=== PATIENT | female | born 2000 | race Caucasian/White ===

== ENCOUNTER 2022-11-17 10:05 | Emergency (ER) | payer MEDICAID, SELFPAY ==
[2022-11-17 10:12] VITALS: BP 116/69; PULSE 88; RESP 14; TEMP 37.2; O2SAT 100
--- NOTE | 2022-11-17 10:29 | DI.US_ITS ---
Exam(s) US PELVIS TRANSVAGINAL EXAM: US PELVIS TRANSVAGINAL CLINICAL HISTORY: pain left lower quadrant TECHNIQUE: Transabdominal and transvaginal imaging was performed using standard protocol. COMPARISON: No exams were available for comparison FINDINGS: UTERUS: Anteverted. 7.6 x 3.5 x 4.5 cm Endometrium: 2 mm. IUD is present foot is positioned abnormally low in the cervix and lower uterine segment. Myometrium: Unremarkable. Cervix: Unremarkable. OVARIES: Right: Cyst or mass: None. Left: Cyst or mass: None. DOPPLER: Color: Symmetric and uniform flow to both ovaries. No hyperemia. CUL-DE-SAC: Free fluid: None. IMPRESSION: 1. IUD position within the cervix and lower uterine segment. 2. Unremarkable bilateral ovaries. DATA REPOSITORY:
[2022-11-17 10:46] LABS: Abs Immature Grans 0.01 10^3/uL (0.0-0.06); Absolute Basophil Count 0.04 10^3/uL (0.0-0.2); Absolute Eosinophil Count 0.52 10^3/uL (0.0-0.7); Absolute Lymphocyte Count 1.85 10^3/uL (1.2-3.4); Absolute Monocyte Count 0.41 10^3/uL (0.1-0.8); Absolute Neutrophil Count 3.12 10^3/uL (1.2-6.7); Basophils % 0.7; Eosinophils % 8.7; HGB 12.8 g/dL (11.2-15.7); Immature Grans % 0.2; Lymphocytes % 31.1; MCH 29.7 pg (27.0-33.0); MCHC 32.8 % (32.0-36.0); MCV 91 fL (80-95); MPV 9.2 fL (8.0-11.0); Monocytes % 6.9; Neutrophils % 52.4; Platelet Count 222 10^3/uL (130-400); RBC 4.31 10^6/uL (3.93-5.22); RDW 12.3 % (11.7-14.6); RDW-SD 41.4 fL; WBC 5.95 10^3/uL (4.4-10.8)
[2022-11-17 10:49] LABS: Bilirubin Negative (Negative); Blood Trace-lysed (Negative); Clarity Clear (Clear); Glucose Negative (Negative); Ketones Negative (Negative); Leukocyte Esterase Moderate (Negative); Nitrite Negative (Negative); Urobilinogen 0.2 mg/dL (Up to 0.2)
[2022-11-17 11:04] LABS: ALT 20 U/L (14-59); AST 14 U/L (15-37); Albumin 3.8 g/dL (3.4-5.0); Alkaline Phosphatase 58 U/L (46-116); Anion Gap 7.4 mmol/L (3-11); BUN 10 mg/dL (7-18); Bilirubin, Total 0.3 mg/dL (0.2-1.0); CO2 26.6 mmol/L (21.0-32.0); CREATININE 0.8 mg/dL (0.55-1.02); Calcium 8.2 mg/dL (8.5-10.1); Chloride 108 mmol/L (98-107); Estimated GFR 108.78 (mL/min/1.73m2); Glucose 87 mg/dL (74-106); Lipase 43 U/L (16-77); Potassium 3.8 mmol/L (3.5-5.1); Sodium 142 mmol/L (136-145); Total Protein 7.4 g/dL (6.4-8.2)
[2022-11-17 11:13] LABS: Bacteria Rare HPF (Negative); C & S Indicated? No/Sq. Contamination; Crystals Negative HPF (Negative); Epithelial Cells Moderate HPF (Negative); Mucus Negative (Negative)
[2022-11-17] MEDS: Ketorolac 15 MG/ML VIAL IVP (11:25)
--- NOTE | 2022-11-17 11:52 | ED.GENADUL_ITS ---
Discharge Plan Disposition Patient Disposition: Home Discharge Details Clinical Impression: Bacterial vaginosis, Encounter for IUD removal Primary Care Provider: None,None ED Provider: Keyona Fraga Home Meds and New Rx's Prescriptions: New metronidazole 500 mg tablet 500 mg PO BID 7 Days Qty: 14 0RF ondansetron 4 mg tablet,disintegrating 4 mg PO Q8H Qty: 10 0RF Discharge Instructions Additional Instructions: Take the antibiotic as prescribed, do not take with alcohol Zofran as needed for nausea and vomiting Ibuprofen and Tylenol as needed for pain Please follow-up with your [facility], be aware that you will need to use alternate form of contraceptive as her IUD has been removed You may have some bleeding throughout the day today, it should only be light secondary to removal of the IUD Please follow-up with her PCP regarding her symptoms and return earlier should you have new or worsening complaints Discharge Data Discharge Date/Time-TO BE ENTERED AT DEPARTURE: 11/17/22 12:00 Medical Decision Making 21-year-old female presenting with abdominal discomfort Diagnostic labs are reassuring and do not show evidence of acute abnormality Malodorous white vaginal discharge noted, suspect bacterial vaginosis, will treat with metronidazole, alcohol precautions reviewed IUD removed by me after discussion with patient and her request, this was removed without incident aside from scant bleeding post removal She is encouraged to use alternate form of contraceptive and to follow-up with her [facility] [facility] Urinalysis has 10-20 white blood cells, this is contaminated specimen and nitrate negative, low suspicion for urinary tract infection clinically, no ind ication for antibiotics for cystitis at this time Will need close outpatient follow-up Appears well throughout this encounter Discharged home in stable condition with stable vitals Medical Records Medical records reviewed: Yes I reviewed the patient's medical records. Lab Data Lab results reviewed: Yes I reviewed the patient's lab results. HPI General Date/Time Provider Initiated Documentation: 11/17/22 10:21 . HPI Narrative: This 21-year-old female presents with 3 days of left side pain, vomited 3 times yesterday and had diarrhea and epigastric pain. She was seen at [facility] for similar symptoms yesterday. She was told that her IUD is in the appropriate position and is scheduled to have this removed, therefore she tells me she is concerned that she might have ectopic . She denies any dramatic change in her symptoms today. She denies any fever or chills today. Related Data Home Medications Medication Instructions Recorded Confirmed metronidazole 500 mg tablet 500 mg PO BID 7 days #14 tabs 11/17/22 ondansetron 4 mg disintegrating 4 mg PO Q8H #10 tabs 11/17/22 tablet Previous Rx's Medication Instructions Recorded metronidazole 500 mg tablet 500 mg PO BID 7 days #14 tabs 11/17/22 ondansetron 4 mg disintegrating 4 mg PO Q8H #10 tabs 11/17/22 tablet Allergies Allergy/AdvReac Type Severity Reaction Status Date / Time No Known Allergies Allergy Unverified 11/17/22 10:26 General Stated Complaint: Abd Prob SHAVONNE: 3 PFSH All Active Problems (Updated 11/17/22 @ 11:55 by RAMESH Gatica) Bacterial vaginosis (Acute) Encounter for IUD removal (Acute) Social History Smoking/Tobacco Use Status: Current every day Tobacco Type: e-cigarettes Smoking risk assessment performed?: Yes Alcohol Intake: never Substance use type: does not use Do you feel safe at home: Yes Do you feel safe in your relationship?: Yes Exam Const General: cooperative, comfortable and no acute distress Resp Effort & Inspection: normal respiratory effort Auscultation: clear to auscultation bilaterally Cardio Rate: regular rate Rhythm: regular rhythm GI Inspection: normal to inspection Auscultation: normal bowel sounds Other: No cervical motion tenderness, IUD string visualized, no adnexal tenderness, white cloudy discharge, malodorous Skin General skin exam: no rashes or lesions noted Neuro General: patient alert and patient oriented x3 Extrem General: normal to inspection Course Vital Signs Vital signs: Vital Signs Temperature 37.2 C 11/17/22 10:12 Pulse 88 11/17/22 10:12 Respiratory Rate 14 11/17/22 10:12 Blood Pressure 116/69 11/17/22 10:12 Pulse Oximetry 100 11/17/22 10:12 Temperature 37.2 C 11/17/22 10:12 Pulse 88 11/17/22 10:12 Respiratory Rate 14 11/17/22 10:12 Respiratory Effort Normal 11/17/22 10:25 Blood Pressure 116/69 11/17/22 10:12 Pulse Oximetry 100 11/17/22 10:12 Oxygen Delivery Method Room Air 11/17/22 10:12 Oxygen Flow Rate 0 11/17/22 10:12 Pain Level 5 11/17/22 11:25 Lab/Test Results Lab/Test Results: Laboratory Tests Range/Units 11/17/22 11/17/22 11/17/22 10:38 10:38 10:40 WBC (4.4-10.8) 10^3/uL 5.95 RBC (3.93-5.22) 10^6/uL 4.31 Hgb (11.2-15.7) g/dL 12.8 Hct (36.0-46.0) % 39.0 MCV (80-95) fL 91 MCH (27.0-33.0) pg 29.7 MCHC (32.0-36.0) % 32.8 RDW (11.7-14.6) % 12.3 Plt Count (130-400) 10^3/uL 222 MPV (8.0-11.0) fL 9.2 Immature Gran % 0.2 Neutrophils % 52.4 Lymphocytes % 31.1 Monocytes % 6.9 Eosinophils % 8.7 Basophils % 0.7 Nucleated RBC % (0.0-0.3) % 0.0 Absolute Neutrophils (1.2-6.7) 10^3/uL 3.12 Absolute Lymphocytes (1.2-3.4) 10^3/uL 1.85 Absolute Monocytes (0.1-0.8) 10^3/uL 0.41 Absolute Eosinophils (0.0-0.7) 10^3/uL 0.52 Absolute Basophils (0.0-0.2) 10^3/uL 0.04 Sodium (136-145) mmol/L 142 Potassium (3.5-5.1) mmol/L 3.8 Chloride (98-107) mmol/L 108 H Carbon Dioxide (21.0-32.0) mmol/L 26.6 Anion Gap (3-11) mmol/L 7.4 BUN (7-18) mg/dL 10 Creatinine (0.55-1.02) mg/dL 0.8 Est GFR (CKD-EPI 2020) (mL/min/1.73m2) 108.78 Glucose (74-106) mg/dL 87 Calcium (8.5-10.1) mg/dL 8.2 L Total Bilirubin (0.2-1.0) mg/dL 0.3 AST (15-37) U/L 14 L ALT (14-59) U/L 20 Alkaline Phosphatase (46-116) U/L 58 Total Protein (6.4-8.2) g/dL 7.4 Albumin (3.4-5.0) g/dL 3.8 Lipase (16-77) U/L 43 Urine Color (Yellow) Yellow Urine Clarity (Clear) Clear Urine pH (5-8) 5.0 Ur Specific Callahan (1.005-1.025) 1.020 Urine Protein (Negative) mg/dL Negative Urine Ketones (Negative) mg/dL Negative Urine Blood (Negative) Trace-lysed H Urine Nitrite (Negative) Negative Urine Bilirubin (Negative) Negative Urine Urobilinogen (Up to 0.2) mg/dL 0.2 Ur Leukocyte Esterase (Negative) Moderate H Urine RBC (0-2) HPF 5-10 H Urine WBC (0-5) HPF 10-20 H Ur Epithelial Cells (Negative) HPF Moderate Urine Crystals (Negative) HPF Negative Urine Bacteria (Negative) HPF Rare Urine Mucus (Negative) Negative Ur Culture Indicated? No/Sq. Contamination Urine Glucose (Negative) mg/dL Negative POC- Test(urine) Negative Procedures Other Description: Mirena IUD was removed with Monica forceps after consent obtained from the yessica ent without incident aside from scant bleeding from cervical os, the IUD was removed and completion without significant notable complication
[2022-11-17 12:00] VITALS: BP 116/69; PULSE 88; RESP 14; O2SAT 100
== END 2022-11-17 12:00 | disposition home or self-care (01) ==
PROVIDERS: Emergency Provider Physician Assistant
DX: N76.0 Acute vaginitis (principal); Z30.432 Encounter for removal of intrauterine contraceptive device; R11.2 Nausea with vomiting, unspecified; R19.7 Diarrhea, unspecified; R10.9 Unspecified abdominal pain
CPT/HCPCS: 36415; 80053; 81025; 83690; 96372; 99284; 58301; 76830; 76856; 81003; 81015; 85025; J1885

== ENCOUNTER 2022-12-30 21:01 | Emergency (ER) | payer MEDICAID, SELFPAY ==
[2022-12-30] VITALS (62 sets, daily range): BP systolic 93–128; BP diastolic 44–82; PULSE 108–145; RESP 14–28; TEMP 36.6; O2SAT 94–100
--- NOTE | 2022-12-30 21:00 | RT.EKG_ITS ---
APPROVED REPORT Exam: Resting ECG Reason for Exam: Shortness of breath chest pain Patient Location: E HR:124 bpm ECG Measurements Heart Rate 124 AXIS AZ 171 P 76 QRSd 71 QRS 73 QT 283 T -31 QTc 405 Conclusion Sinus tachycardia...rate> 99 Ventricular premature complex...V complex w/ short R-R interval Narrow complex sinus tachycardia at a rate of 124. Normal axis. Intervals within normal limits. No ST segment abnormalities. Inferior T wave inversions. No prior for comparison. No acute injury pa ttern.
--- NOTE | 2022-12-30 21:05 | W.ED.GENAD ---
Discharge Plan Disposition Patient Disposition: Admit to [facility] Discharge Details Clinical Impression: Pneumomediastinum, Acute asthma exacerbation Primary Care Provider: Unknown,Unknown ED Provider: Romeo Weaver Home Meds and New Rx's Prescriptions: No Action ondansetron 4 mg tablet,disintegrating 4 mg PO Q8H Qty: 10 0RF Medical Decision Making This is an overall well-appearing tachycardic but normothermic and not hypoxic 22-year-old female with prolonged expiratory phase and presentation concerning for reactive airway disease. Patient does report that she does have chest pain that feels different compared to prior exacerbations of her reactive airway disease. She reports the center of her chest and says her pain radiates down into her abdomen. She also has a positive Lee's sign and so I am concerned for the possibility of acute cholecystitis. She also endorses pleuritic pain and is otherwise low risk but not PERC negative as she is tachycardic and on OCPs will obtain a D-dimer to assess for PE. She has not been vomiting to suggest increased risk for esophageal rupture. She has no rash or chest to suggest zoster. No trauma to the chest and abdominal pneumothorax. She does have fever but does not have any focal lung abnormalities to suggest pneumonia. Will obtain a two-view chest x-ray if her D-dimer is negative. If her dimer is positive we will obtain a CT angiogram of her chest. No pain out of proportion to suggest necrotizing soft tissue infection. She is not hypotensive to suggest tamponade. 10:24 PM Reassuring comprehensive metabolic panel with no. Mild anion gap and normal bicarbonate and no hyperglycemia not consistent with DKA. No KASH. LFT abnormalities significant negative hCG. Negative troponin. Reassuring normal lipase. CBC with no anemia no thrombocytopenia nor leukocytosis. Very mildly elevated D-dimer however given the patient has chest pain that is different from prior exacerbations of her asthma we will proceed with CT scan. 11:26 PM Patient had a CT scan concerning for pneumomediastinum. She is not hypoxic at the moment but given this abnormal finding and her new chest pain I spoke with Dr. Santiago who agreed graciously to accept the patient for hospitalization. Persistent tachycardia likely secondary to albuterol use. Patient received 100 cc of crystalloid in the ED. HPI General Date/Time Provider Initiated Documentation: 12/30/22 21:02. HPI Narrative: This is a 22-year-old female with a history of asthma on outpatient nebulizers and inhalers presenting in the setting of acute asthma exacerbation. She feels short of breath and has been using her inhaler for the past 2 days. She reports that she also has a sharp chest pain worse with breathing. She says that it radiates down to her abdomen and she is also endorsing abdominal pain. There is no family history of coronary artery disease in her mother or father though there is family history in her grandparents. Patient vapes tobacco but denies alcohol or illicits. She has not been vomiting. She has not had any trauma to her chest. She does endorse a fever up to 101.8 ?F as taken tympanically earlier this evening at home for which she took ibuprofen. She has been using her nebulizer every 2 hours. Has never had any surgeries to her abdomen. She is on outpatient oral contraceptives. She denies dysuria and frequency. She denies exacerbating alleviators. She has never had a PE nor DVT. She received her immunizations during childhood. Related Data Home Medications Medication Instructions Recorded Confirmed ondansetron 4 mg disintegrating 4 mg PO Q8H #10 tabs 11/17/22 tablet Previous Rx's Medication Instructions Recorded ondansetron 4 mg disintegrating 4 mg PO Q8H #10 tabs 11/17/22 tablet Allergies Allergy/AdvReac Type Severity Reaction Status Date / Time No Known Allergies Allergy Unverified 11/17/22 10:26 General SHAVONNE: 3 PFSH All Active Problems (Updated 12/30/22 @ 23:27 by Romeo Weaver MD) Pneumomediastinum (Acute) Acute asthma exacerbation (Acute) Social History Smoking/Tobacco Use Status: Current every day Tobacco Type: e-cigarettes Smoking risk assessment performed?: Yes Alcohol Intake: never Substance use type: does not use Do you feel safe at home: Yes Do you feel safe in your relationship?: Yes Exam Narrative Exam Narrative: General: Well-appearing in no acute distress speaking in complete sentences. Head: Normocephalic, atraumatic. Eye: Extraocular eye movements intact. No conjunctival injection. No scleral icterus. Ear, nose, mouth, throat: Grossly normal inspection. Normal voice, handling secretions normally. Neck: Trachea midline. Cardiovascular: Well-perfused distal extremities. Rapid regular rate. No murmurs. Respiratory: Nonlabored respiration. Prolonged expiratory phase bilaterally. Trace wheezes. No stridor. No accessory muscle use. Gastrointestinal: Nondistended abdomen. Soft. Right upper quadrant tenderness. Positive Lee sign. Musculoskeletal: No edema. Moving all 4 extremities spontaneously. Skin: Normal for age and race, grossly normal temperature and turgor. No acute rash. Neurologic: Alert and appropriate, no apparent acute deficits. Psychiatric: Mood and manner are appropriate. Grooming and personal hygiene are appropriate.
[2022-12-30] MEDS: Albuterol/Ipratropium 3 ML UPD VIAL UPD (21:36)
[2022-12-30] MEDS: Normal Saline 1,000 ML 1000 ML IV (21:41)
[2022-12-30 21:42] LABS: Abs Immature Grans 0.03 10^3/uL (0.0-0.06); Absolute Basophil Count 0.06 10^3/uL (0.0-0.2); Absolute Eosinophil Count 0.68 10^3/uL (0.0-0.7); Absolute Lymphocyte Count 0.71 10^3/uL (1.2-3.4); Absolute Monocyte Count 0.56 10^3/uL (0.1-0.8); Absolute Neutrophil Count 6.59 10^3/uL (1.2-6.7); Basophils % 0.7; Eosinophils % 7.9; HCT 38.8 % (36.0-46.0); HGB 12.9 g/dL (11.2-15.7); Immature Grans % 0.3; Lymphocytes % 8.2; MCH 30.5 pg (27.0-33.0); MCHC 33.2 % (32.0-36.0); MCV 92 fL (80-95); MPV 9.3 fL (8.0-11.0); Monocytes % 6.5; Neutrophils % 76.4; Platelet Count 230 10^3/uL (130-400); RBC 4.23 10^6/uL (3.93-5.22); RDW 12.5 % (11.7-14.6); RDW-SD 41.9 fL; WBC 8.63 10^3/uL (4.4-10.8)
[2022-12-30 21:58] LABS: HCG Qual (Serum) Negative
[2022-12-30 21:59] LABS: ALT 19 U/L (14-59); AST 12 U/L (15-37); Albumin 3.9 g/dL (3.4-5.0); Alkaline Phosphatase 47 U/L (46-116); Anion Gap 11.4 mmol/L (3-11); BUN 11 mg/dL (7-18); Bilirubin, Total 0.2 mg/dL (0.2-1.0); CO2 24.6 mmol/L (21.0-32.0); CREATININE 0.9 mg/dL (0.55-1.02); Calcium 8.6 mg/dL (8.5-10.1); Chloride 106 mmol/L (98-107); Estimated GFR 93.86 (mL/min/1.73m2); Glucose 78 mg/dL (74-106); Lipase 57 U/L (16-77); Potassium 3.5 mmol/L (3.5-5.1); Sodium 142 mmol/L (136-145); Troponin I < 50 ng/L (<or=60)
--- NOTE | 2022-12-30 22:06 | NUR.NOTE ---
Nursing Note: Report to Usman CARRASQUILLO.
[2022-12-30 22:13] LABS: D-Dimer 579 ng/mlFEU (<500)
--- NOTE | 2022-12-30 22:15 | DI.CT_ITS ---
Exam(s) CT CHEST PE CTA EXAM: CT CHEST PE CTA CLINICAL HISTORY: Shortness of breath positive dimer. TECHNIQUE: Imaging Protocol: CT angiography of the chest was performed using pulmonary embolus matt col. Multi planar reconstructions were performed. CONTRAST MATERIAL: Intravenous: Omnipaque 350 Contrast volume: 100 cc COMPARISON: No exams were available for comparison FINDINGS: CHEST: PULMONARY ARTERIES: Less than optimal injection but no obvious intraluminal filling defects to sugges t acute pulmonary emboli. LUNGS: There is subpleural infiltrate in the lateral basal and anterior basal segments of the left lo wer lobe. . No associated pleural effusion. There is also some atelectasis and mild infiltrate in the right middle lobe. No associated pleural effusion. No obstructing findings in the trachea and m ainstem bronchi. MEDIASTINUM: There are moderately enlarged lymph nodes in both hilar regions as well as the subcarina l region. Tissue density in the anterior mediastinal fat is probably thymus remnant. There is free air evident in the mediastinum, prominent in the aortopulmonic window as well as para esophageal and para aortic. No evidence of mediastinal abscess. Visualized thyroid unremarkable. CARDIAC: Heart size is upper normal. There is no pericardial effusion.Caliber of the thoracic aorta is within normal limits. No dissection. There is no significant shift of the interventricular septum . PARTIALLY VISUALIZED UPPERMOST ABDOMEN: No obvious findings OSSEOUS: No significant osseous lesions.No fractures.. IMPRESSION: 1. No evidence of obvious acute pulmonary emboli. However, there is left lower lobe infiltrate pleur al base in the lateral basal and anterior basal segments as well as some infiltrate in the right midd le lobe. No pleural effusions. 2. There is bilateral hilar and subcarinal/mediastinal adenopathy. 3. There is significant amount soft tissue gas throughout the mediastinum as well as paraspinous. No mediastinal abscess evident. Given the history here this may be related to severe coughing episode with small airway/alveolar rupture but cannot exclude esophageal injury. Close follow-up recommended there. Other findings as above. First read by [facility] Final report called by myself to ER physician 12/31/2022 RADIATION DOSE DELIVERED: 286.96mGy.cm Total DLP DATA REPOSITORY: All CT scans at this facility are submitted to the National Radiology Data Registry (NRDR) Dose Index Registry (DIR) with the [employer] (A[employer]). RADIATION OPTIMIZATION: All CT scans at this facility use at least one of these dose optimization te chniques: automated exposure control; mA and/or kV adjustment per patient size (includes targeted exa ms where dose is matched to clinical indication); or iterative reconstruction.
[2022-12-30] MEDS: Normal Saline Flush 10 ML SYR IVP (22:28)
[2022-12-30] MEDS: Normal Saline - Diluent 50 ML VIAL IJ (22:29)
[2022-12-30] MEDS: Omnipaque 350 MG/ML 100 ML BTL IJ (22:29)
[2022-12-30] MEDS: Dexamethasone 4 MG TAB 8 MG PO (23:00)
[2022-12-30 23:11] LABS: Influenza A PCR Negative (Negative); Influenza B PCR Negative (Negative); RSV PCR Negative (Negative)
--- NOTE | 2022-12-30 23:19 | DI.VRAD_ITS ---
PROCEDURE INFORMATION: Exam: CTA Chest With Contrast Exam date and time: 12/30/2022 10:38 PM Age: 22 years old Clinical indication: Abnormal findings; Abnormal diagnostic tests; Elevated d-dimer; Shortness of breath; Patient HX: SOB, positive d-dimer TECHNIQUE: Imaging protocol: Computed tomographic angiography of the chest with contrast. Exam focused on the arteries. 3D rendering (Not supervised by radiologist): MIP and/or 3D reconstructed images were created by the technologist. Radiation optimization: All CT scans at this facility use at least one of these dose optimization techniques: automated exposure control; mA and/or kV adjustment per patient size (includes targeted exams where dose is matched to clinical indication); or iterative reconstruction. Contrast material: OMNIPAQUE 350; Contrast volume: 65 ml; Contrast route: INTRAVENOUS (IV); COMPARISON: No relevant prior studies available. FINDINGS: Pulmonary arteries: Normal. No pulmonary emboli. Aorta: Unremarkable. No aortic aneurysm. No aortic dissection. Lungs: Partial right middle lobe atelectasis. Mild subsegmental atelectasis in the left lower lobe. Lungs are otherwise clear. Pleural spaces: Small amount of loculated pleural gas along the left pulmonary fissure extending into the left hilum. No pleural fluid. Heart: Unremarkable. No cardiomegaly. No pericardial effusion. Lymph nodes: Unremarkable. No enlarged lymph nodes. Bones/joints: Unremarkable. No acute fracture. Soft tissues: Moderate amount of soft tissue gas is noted scattered throughout the mediastinum and extending caudad through the diaphragmatic hiatus and posterior within the left paraspinous soft tissues at the level of the left lower ribcage. IMPRESSION: 1. Moderate amount of scattered soft tissue gas in the mediastinum and extending into the left pulmonary fissure as well as into the left paraspinous soft tissues and just deep to the posteromedial left lower ribcage. Given clinical history of recent significant coughing episodes, findings are likely sequela of central alveolar or small airway rupture. Esophageal injury would be of consideration but considered less likely given clinical presentation. 2. Mild consolidative atelectasis in the right middle lobe and left lower lobe 3. No evidence of pulmonary embolus. THIS REPORT CONTAINS FINDINGS THAT MAY BE CRITICAL TO PATIENT CARE. The findings were verbally communicated via telephone conference with YIN ROLON at 11:17 PM EDT on 12/30/2022. The findings were acknowledged and understood. Dictated and Authenticated by: Diego Lima MD. Ordering:NAVARRO Walters MD
[2022-12-30 23:36] LABS: Source Nasopharynx
[2022-12-30 23:37] LABS: COVID-19 PCR Positive (Negative)
[2022-12-31] VITALS (7 sets, daily range): BP systolic 113–129; BP diastolic 60–91; PULSE 108–130; RESP 16–28; O2SAT 92–96
--- NOTE | 2022-12-31 00:08 | NUR.NOTE ---
Medsurg called to get report on pt. Report given. Told there would be a delay for housekeeping cleaning the room.
[2022-12-31] MEDS: Albuterol HFA 8 GM 60 PUFF INH IH (00:31)
--- NOTE | 2022-12-31 00:47 | NUR.NOTE ---
Pt was about to go upstairs. Pt was informed of the visitor policy and was not happy because her boyfriend would have no way of getting home. Nursing supervisor drying was talked to and confirmed that the visitor policy could not be broken. Pt stated that she would like to leave AMA. Dr. Santiago was contacted and agreed to the AMA with standard warnings about and disability. Pt agreed and stated that she understood. Pt was signed out AMA. VSS and pt walked with a purposeful and steady gait after her IV was removed.
--- NOTE | 2022-12-31 18:22 | NUR.NOTE ---
Nursing Note: Accessed chart to get phone number for provider
--- NOTE | 2022-12-31 18:36 | ED.FU.B_ITS ---
Date of service: 12/30/22 Follow Up Plan: Patient was seen here yesterday with acute asthma exacerbation. She had a CT scan performed because of chest pain and possibility of pulmonary embolus. Patient was found to have pneumomediastinum presumably from asthma and cough. She was supposed to be admitted but when she was informed that the boyfriend would not be able to go upstairs last night she signed out AGAINST MEDICAL ADVICE. Received a call from our radiologist, Dr. Munoz. His over read suggest possibility of infiltrate rather than atelectasis as previously reported by Shani. He was also concerned that she had enlarged lymph nodes more so than he would expect. I called and spoke to the patient this evening. She is fe eling about the same. Breathing has not really gotten better but it is not worse. Chest pain is about the same as well. When she left here she did not receive prescription for steroids or antibiotic. Patient does have primary care, Pauline Messina. Plan will be to send prescriptions for prednisone and antibiotic to her pharmacy and will put. We will also fax the ED report, CT scan report, left progress note to the patient's PCP. We will attempt to get her follow-up this week. Informed the patient that she should seek care if she has increasing shortness of breath chest pain or any other concerns.
--- NOTE | 2022-12-31 18:53 | NUR.NOTE ---
Nursing Note: Referral faxed to PCP, Pauline Messina; [facility]. For acute asthma exacerbation, w/pneumomediastinum, ? pneumonia. To be seen [facility] this week. Chart summary was faxed to PCP.
== END 2022-12-31 00:45 | disposition left against medical advice (07) ==
PROVIDERS: Emergency Provider Emergency Medicine; PCP Physician Assistant
DX: J45.901 Unspecified asthma with (acute) exacerbation (principal); J98.2 Interstitial emphysema
CPT/HCPCS: 71275; 76882; 80053; 83690; 87637; 93005; 93308; 94640; 96360; 99285; 84484; 84703; 85025; 85379; 86140; 93010; J3490; J7620; J8540